=== PATIENT | female | born 1990 | race Two or more races ===

== ENCOUNTER 2022-02-17 17:14 | Emergency (ER) | payer OTHER ==
[2022-02-17 17:52] VITALS: BP 122/81; PULSE 85; RESP 18; TEMP 98.9; BMI 20.1
[2022-02-17 18:28] LABS: HEMATOCRIT 37.5 % (32.4-45.2); HEMOGLOBIN 13.1 G/dL (10.7-15.3); MCH 30.4 pg (25.7-33.7); MCHC 34.8 g/dl (32.0-36.0); MEAN CELL VOLUME 87.4 fl (80-96); PLATELET COUNT 171.8 10^3/uL (134-434); RBC 4.29 10^6/uL (3.60-5.2); RDW 14.4 % (11.6-15.6); WHITE BLOOD COUNT 3.4 10^3/uL (4.0-10.8)
[2022-02-17 18:36] LABS: ALBUMIN 3.9 g/dl (3.4-5.0); BILIRUBIN,TOTAL 0.5 mg/dl (0.2-1); CALCIUM 8.9 mg/dl (8.5-10); CREATININE 0.8 mg/dl (0.55-1.3); TOT PROT 7.4 g/dl (6.4-8.2)
[2022-02-17 18:52] LABS: EPITHELIAL CELLS FEW /hpf
== END 2022-02-17 19:02 | disposition home or self-care (01) ==
LOC: FER 17:14
DX: R21 Rash and other nonspecific skin eruption (principal)
CPT/HCPCS: 36415; 80053; 81003; 81015; 84703; 85027; 86780; 87086; 87186; 87491; 87529; 87591; 87593; 87661; 99283-25

== ENCOUNTER 2025-01-27 21:45 | Emergency (ER) | payer OTHER ==
[2025-01-27 21:53] VITALS: BP 117/71; PULSE 86; RESP 16; TEMP 98.2; BMI 22.6
[2025-01-27] MEDS ORDERED: ACETAMINOPHEN 500 MG TABLET (FP) ONE (23:02)
[2025-01-27] MEDS: ACETAMINOPHEN 500 MG TABLET (FP) PO ONE (23:04)
== END 2025-01-27 23:09 | disposition home or self-care (01) ==
LOC: JERFT 21:45
DX: S52.122A Displaced fracture of head of left radius, initial encounter for closed fracture (principal); W16.112A Fall into natural body of water striking water surface causing other injury, initial encounter; Y92.832 Beach as the place of occurrence of the external cause
CPT/HCPCS: 73070-TC-LT-FY; 99283-25